=== PATIENT | male | born 1975 | race Caucasian/White ===

== ENCOUNTER 2019-03-20 14:26 | Emergency (ER) | payer SELFPAY ==
[~2019-03-20] VITALS: Ht 188 cm; Wt 118.0 kg
[2019-03-20 14:30] VITALS: BP 168/109
--- NOTE | 2019-03-20 14:50 | NUR ---
PT WAS BIB BY [facility] FOR A GLF. TONIA IS 0.178. 2" LACERATION ON LEFT SIDE OF HEAD. EVERYDAY DRINKER. PAITENT IS A0X4. DENIES LOC. IS DRUNK AND IMPULSIVE. HX OF NC AND HTN.
--- NOTE | 2019-03-20 15:17 | NUR ---
REPORT GIVEN TO LEFTY NOLAND
== END 2019-03-20 15:45 | disposition left against medical advice (07) ==
LOC: ED 15:40
DX: S01.91XA Laceration without foreign body of unspecified part of head, initial encounter (principal); F10.120 Alcohol abuse with intoxication, uncomplicated; F17.200 Nicotine dependence, unspecified, uncomplicated; I25.810 Atherosclerosis of coronary artery bypass graft(s) without angina pectoris; W18.39XA Other fall on same level, initial encounter; Y93.89 Activity, other specified; Y92.89 Other specified places as the place of occurrence of the external cause; Y99.8 Other external cause status
CPT/HCPCS: 93005; 99283

== ENCOUNTER 2020-04-24 16:37 | Emergency (ER) | payer MEDICAID, OTHER ==
[~2020-04-24] VITALS: Ht 190.5 cm; Wt 91.9 kg
--- NOTE | 2020-04-24 17:20 | NUR ---
PT'S MOBILITY HAS DECREASED BECAUSE OF DISTENTION OF ABDOMEN AND SWELLING OF LEGS DEVELOPING. PT STATES HE FELL A WEEK AGO AND HURT HIS RIGHT KNEE AND SHOULDER. HAS BECOME MORE DIFFICULT TO GET FROM SITTING OR LYING POSITION TO STANDING POSITION BECAUSE OF ABDOMINAL DISTENTION. PT STATES HE HAS NOT TAKEN ANY MEDS FOR SEVEN YEARS BUT HAS HX OF HTN, STROKE WITH LEFT SIDED NUMBNESS
[2020-04-24 17:22] LABS: BASOPHILS % (AUTO) 0 % (0-1); EOSINOPHILS % (AUTO) 0 % (1-7); LYMPHOCYTES % (AUTO) 13 % (22-44); MEAN CORPUSCULAR HEMOGLOBIN 35.7 pg (27.5-34.5); MEAN CORPUSCULAR HGB CONC 34.3 g/dL (33.2-36.2); MONOCYTES % (AUTO) 14 % (2-9); NEUTROPHILS % (AUTO) 73 % (42-75); PLATELET COUNT 198 x10^3/uL (130-400); RED BLOOD COUNT 4.01 x10^6/uL (4.38-5.82); RED CELL DISTRIBUTION WIDTH 14.1 % (9.4-14.8)
[2020-04-24 17:32] LABS: INTERNATIONAL NORMALIZED RATIO 1.37 (0.93-1.1); PROTHROMBIN TIME 14.5 Seconds (9.6-11.5)
[2020-04-24 17:33] LABS: ALANINE AMINOTRANSFERASE 64 U/L (12-78); ALBUMIN 2.4 g/dL (3.4-5.0); ANION GAP 9 mmol/L (5-15); CALCIUM 8.5 mg/dL (8.5-10.1); CHLORIDE 100 mmol/L (98-107); CREATININE 0.57 mg/dL (0.7-1.3)
[2020-04-24 17:35] LABS: ALKALINE PHOSPHATASE 148 U/L (45-117); BILIRUBIN,TOTAL 2.3 mg/dL (0.2-1.0); TOTAL PROTEIN 5.9 g/dL (6.4-8.2)
[2020-04-24 17:47] LABS: MD MORPH REVIEW ONLY; POLYCHROMASIA 1+
[2020-04-24 17:48] LABS: <PLATELET ESTIMATE> ADEQUATE; <PLT MORPHOLOGY> NORMAL PLT MORPH
--- NOTE | 2020-04-24 18:48 | NUR ---
PT LYING ON RIGHT SIDE RESTING WHILE AWAITING MD RE-EVAL
--- NOTE | 2020-04-24 19:07 | NUR ---
Report received from LUDIN Marie. This RN to assume care. Patient resting in [facility] with no complaints at this time. Awaiting recheck.
[2020-04-24 19:26] VITALS: BP 142/103
--- NOTE | 2020-04-24 19:29 | NUR ---
Patient discharge instructions given. Patient HTN which has remained unchanged since arrival; ERP aware. Patient being discharge with rx to be filled. All questions and concerns addressed. Patient ambulatory with a steady gait. Belongings with patient.
== END 2020-04-24 19:40 | disposition home or self-care (01) ==
LOC: ED 17:54
DX: K70.11 Alcoholic hepatitis with ascites (principal); R60.0 Localized edema; E88.09 Other disorders of plasma-protein metabolism, not elsewhere classified; F17.200 Nicotine dependence, unspecified, uncomplicated; Z88.5 Allergy status to narcotic agent
CPT/HCPCS: 36415; 80053; 83690; 85025; 85610; 85730; 99283